=== PATIENT | male | born 2005 | race Caucasian/White ===

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

== ENCOUNTER 2023-06-02 12:52 | Emergency (ER) | payer MEDICAID ==
[~2023-06-02] VITALS: Ht 180.3 cm; Wt 126.7 kg
[~2023-06-02 12:52] MED LIST changes: +PROP15DR OP
[2023-06-02 13:15] VITALS: BP 150/83; PULSE 119; RESP 20; TEMP 100; O2SAT 97
[2023-06-02] MEDS ORDERED: KETOROLAC 30 MG/ML VIAL IVP ONE (14:45)
[2023-06-02] MEDS ORDERED: ONDANSETRON 4 MG/2 ML VIAL IVP ONE (14:45)
[2023-06-02] MEDS ORDERED: NACL 0.9% 1,000 ML IV ONE (14:45)
[2023-06-02 15:23] LABS: BASOPHILS # (AUTO) 0.1 K/uL (0.00-0.22); BASOPHILS % (AUTO) 0.4 % (0.0-2.0); HEMATOCRIT 43.1 % (36-52); HEMOGLOBIN 14.6 g/dL (12.0-18.0); LYMPHOCYTES # (AUTO) 1.4 K/uL (2.0-11.5); LYMPHOCYTES % (AUTO) 7.1 % (20.5-51.1); MEAN CORPUSCULAR HEMOGLOBIN 28 pg (27-31); MEAN CORPUSCULAR HGB CONC 34 g/dL (33-37); MEAN CORPUSCULAR VOLUME 82.7 fL (80-94); MONOCYTES # (AUTO) 1.3 K/uL (0.8-1.0); MONOCYTES % (AUTO) 6.7 % (1.7-9.3); NEUTROPHILS # (AUTO) 16.6 K/uL (1.8-7.7); NEUTROPHILS % (AUTO) 85.8 % (42.2-75.2); PLATELET COUNT (AUTO) 233 K/uL (140-450); RED BLOOD CELL COUNT(AUTO) 5.21 MIL/uL (4.20-6.10); RED CELL DISTRIBUTION WIDTH 13.7 % (11.6-13.7); WHITE BLOOD COUNT (AUTO) 19.3 K/uL (4.5-11.0)
[2023-06-02 15:55] LABS: ALBUMIN 4.1 g/dL (3.4-5.0); ANION GAP 14.7 (8-16); CALCIUM 9.7 mg/dL (8.5-10.1); CARBON DIOXIDE 26.9 mmol/L (21-32); POTASSIUM 3.6 mmol/L (3.5-5.1); TOTAL PROTEIN, SERUM 8.5 g/dL (6.4-8.2)
[2023-06-02 16:03] LABS: LACTIC ACID 0.9 mmol/L (0.4-2.0)
[2023-06-02 16:18] LABS: CREATININE 1.1 mg/dL (0.6-1.3)
[2023-06-02 17:07] LABS: APPEARANCE,URINE CLEAR (CLEAR); BILIRUBIN,URINE NEGATIVE (NEGATIVE); BLOOD, URINE 1+ (NEGATIVE); COLOR,URINE YELLOW (YELLOW); LEUKOCYTE ESTERASE ,URINE NEGATIVE (NEGATIVE); NITRITE, URINE NEGATIVE (NEGATIVE); PROTEIN,URINE TRACE (NEGATIVE); UGLUCOSE NEGATIVE (NEGATIVE)
[2023-06-02 17:14] LABS: BACTERIA,URINE 1+ /HPF (None Seen); HYALINE CASTS, URINE 0-10 /LPF (None Seen); MUCUS,URINE 2+ /LPF (None Seen); SQUAMOUS EPITHELIAL CELL,UR 4-10 (MOD) /LPF (0-3 (FEW)); TRICHOMONAS,URINE None Seen /HPF (None Seen); URINE AMORPHOUS URATE 1+ /HPF (None Seen); WBC,URINE 0-5 /HPF (0-5); YEAST,URINE None Seen /HPF (None Seen)
[2023-06-02] MEDS ORDERED: IBUP-1842 PO (17:54)
[2023-06-02] MEDS ORDERED: ONDA-188 PO (17:54)
[2023-06-02] MEDS ORDERED: MAG355OR2 PO (17:54)
[2023-06-02] MEDS ORDERED: AMOX1TAB8 PO (17:54)
[2023-06-02 18:19] VITALS: BP 112/60; PULSE 78; RESP 16; TEMP 98.1; O2SAT 98
== END 2023-06-02 18:21 | disposition home or self-care (01) ==
LOC: MED 12:52
DX: I88.0 Nonspecific mesenteric lymphadenitis (principal); R10.30 Lower abdominal pain, unspecified; R11.10 Vomiting, unspecified; R30.9 Painful micturition, unspecified; F12.90 Cannabis use, unspecified, uncomplicated; Z79.899 Other long term (current) drug therapy
CPT/HCPCS: 36415; 74177; 80053; 81001; 83605; 83690; 85025; 87086; 96361; 96374; 96375; 99285; J1885; J2405; J7030; Q9967